=== PATIENT | female | born 1950 | race Caucasian/White ===

== ENCOUNTER 2018-08-22 23:56 | Inpatient (IN) | payer OTHER, MEDICAID ==
[~2018-08-22] VITALS: Ht 152.4 cm; Wt 67.1 kg
[2018-08-23] MEDS ORDERED: FUROSEMIDE 40MG/4ML VIAL IV ONE (01:45)
[2018-08-23 02:11] LABS: CHLORIDE 102 mEq/L (98-107)
[2018-08-23 02:14] LABS: BASOPHILS % 0.4 % (0.0-2.0); EOSINOPHILS % 1.6 % (0.0-5.0); HEMATOCRIT. 32.3 % (36.0-48.0); HEMOGLOBIN. 10.7 g/dL (12.0-16.0); LYMPHOCYTES % 9.8 % (20.0-50.0); MEAN CORPUSCULAR HEMOGLOBIN 27.4 pg (28.0-32.0); MEAN CORPUSCULAR VOLUME 82.6 fL (81.0-99.0); MEAN PLATELET VOLUME 8.5 fl (7.4-10.4); MONOCYTES % 5.6 % (2.0-8.0); NEUTROPHILS % 82.6 % (40.0-76.0); PLATELET 220 x1000/uL (130-400); RED BLOOD CELL COUNT 3.92 mill/uL (4.2-5.4); RED CELL DISTRIBUTION WIDTH 14.6 % (11.6-14.6)
[2018-08-23] MEDS ORDERED: ENALAPRIL 2.5MG/2ML VIAL 2ML IV ONE (04:00)
[2018-08-23] MEDS ORDERED: CLONIDINE 0.1MG TABLET PO PRN (08:30)
[2018-08-23] MEDS ORDERED: DEXTROSE 50% WATER 50ML SYRINGE IV PRN (08:30)
[2018-08-23] MEDS ORDERED: ONDANSETRON HCL 4MG/2ML INJ IV PRN (08:45)
[2018-08-23] MEDS ORDERED: ACETAMINOPHEN 325MG TABLET PO PRN (08:45)
[2018-08-23] MEDS: INSULIN LISPRO 100 UNITS/ML SUBCUT SCH ×3 (09:15→21:00)
[2018-08-23] MEDS ORDERED: AMLODIPINE 5MG TABLET PO SCH (09:15)
[2018-08-23] MEDS: FUROSEMIDE 40MG/4ML VIAL IVP SCH (10:02)
[2018-08-23] MEDS: BLOOD SUGAR DIAGNOSTIC STRIP TEST SCH ×4 (10:15→21:00)
[2018-08-23 11:59] LABS: LDL CHOLESTEROL 156 mg/dL (5-100)
[2018-08-23 12:01] LABS: CREATINE KINASE 35 IU/L (26-192); HDL CHOLESTEROL 47 mg/dL (40-59)
[2018-08-23 12:03] LABS: CREATINE KINASE MB FRACTION < 1.0 ng/mL (0.5-3.6)
[2018-08-23] MEDS: CLOPIDOGREL 75MG TABLET PO SCH (12:45)
[2018-08-23] MEDS: NITROGLYCERIN OINT 1GM/INCH UDPKT TD SCH ×2 (14:00→23:54)
[2018-08-23] MEDS ORDERED: METOPROLOL TARTRATE 25MG TABLET PO SCH (17:00)
[2018-08-23 23:10] VITALS: BP 114/67
[2018-08-23 23:30] VITALS: BP 114/67
[2018-08-23] MEDS: ATORVASTATIN CALCIUM 40MG TABLET PO SCH (23:55)
[2018-08-23] MEDS: LISINOPRIL 5MG TABLET PO SCH (23:55)
[2018-08-24 04:00] VITALS: BP 119/57
[2018-08-24] MEDS: NITROGLYCERIN OINT 1GM/INCH UDPKT TD SCH ×3 (06:04→20:17)
[2018-08-24] MEDS: INSULIN LISPRO 100 UNITS/ML SUBCUT SCH ×4 (06:19→21:27)
[2018-08-24] MEDS: BLOOD SUGAR DIAGNOSTIC STRIP TEST SCH ×4 (06:23→20:17)
[2018-08-24 08:00] VITALS: BP 121/57
[2018-08-24] MEDS: FUROSEMIDE 40MG/4ML VIAL IVP SCH (08:39)
[2018-08-24] MEDS: LISINOPRIL 5MG TABLET PO SCH ×2 (08:39→21:16)
[2018-08-24] MEDS: CLOPIDOGREL 75MG TABLET PO SCH (08:39)
[2018-08-24 12:00] VITALS: BP 147/64
[2018-08-24 16:00] VITALS: BP 151/68
[2018-08-24 20:00] VITALS: BP 157/67
[2018-08-24] MEDS: METOPROLOL TARTRATE 50MG TABLET PO SCH (21:16)
[2018-08-24] MEDS: ATORVASTATIN CALCIUM 40MG TABLET PO SCH (21:20)
[2018-08-24] MEDS: INSULIN GLARGINE UD 100 UNITS/ML SYR SUBCUT SCH (21:27)
[2018-08-24] MEDS ORDERED: METOPROLOL TARTRATE 25MG TABLET PO SCH (23:04)
[2018-08-25] VITALS: BP 122/68
[2018-08-25 04:00] VITALS: BP 142/72
[2018-08-25] MEDS: NITROGLYCERIN OINT 1GM/INCH UDPKT TD SCH ×2 (05:18→13:19)
[2018-08-25] MEDS: BLOOD SUGAR DIAGNOSTIC STRIP TEST SCH ×2 (06:30→11:34)
[2018-08-25] MEDS: INSULIN LISPRO 100 UNITS/ML SUBCUT SCH ×2 (06:30→12:16)
[2018-08-25 07:04] LABS: BASOPHILS % 0.8 % (0.0-2.0); EOSINOPHILS % 2.3 % (0.0-5.0); HEMATOCRIT. 29.9 % (36.0-48.0); HEMOGLOBIN. 10.1 g/dL (12.0-16.0); LYMPHOCYTES % 25.7 % (20.0-50.0); MEAN CORPUSCULAR HEMOGLOBIN 27.6 pg (28.0-32.0); MEAN CORPUSCULAR VOLUME 81.6 fL (81.0-99.0); MEAN PLATELET VOLUME 8.3 fl (7.4-10.4); MONOCYTES % 10.4 % (2.0-8.0); NEUTROPHILS % 60.8 % (40.0-76.0); PLATELET 234 x1000/uL (130-400); RED BLOOD CELL COUNT 3.66 mill/uL (4.2-5.4); RED CELL DISTRIBUTION WIDTH 14.4 % (11.6-14.6)
[2018-08-25 07:30] VITALS: BP 156/60
[2018-08-25 08:17] LABS: FOLIC ACID (FOLATE) SERUM 16.5 ng/mL (>5.38)
[2018-08-25] MEDS ORDERED: FAMOTIDINE 20MG TABLET PO SCH (09:00)
[2018-08-25] MEDS: FUROSEMIDE 40MG/4ML VIAL IVP SCH (09:08)
[2018-08-25] MEDS: CLOPIDOGREL 75MG TABLET PO SCH (09:08)
[2018-08-25] MEDS: METOPROLOL TARTRATE 50MG TABLET PO SCH (09:08)
[2018-08-25] MEDS: LISINOPRIL 5MG TABLET PO SCH (09:09)
[2018-08-25] MEDS: INSULIN GLARGINE UD 100 UNITS/ML SYR SUBCUT SCH (10:02)
[2018-08-25 12:00] VITALS: BP 155/67
[2018-08-25] MEDS ORDERED: LIP40 PO (12:36)
[2018-08-25] MEDS ORDERED: LISI-186 PO (12:36)
[2018-08-25] MEDS ORDERED: FURO-152 MT (12:36)
[2018-08-25] MEDS ORDERED: FAMO20TA8 PO (12:36)
[2018-08-25] MEDS ORDERED: METF-414 MT (12:36)
[2018-08-25] MEDS ORDERED: METO-539 PO (12:36)
[2018-08-25] MEDS ORDERED: GLIP5TAB12 MT (12:40)
[2018-08-25 13:19] VITALS: BP 155/67
[2018-08-25] MEDS ORDERED: METOPROLOL TARTRATE 50MG TABLET PO SCH (21:00)
== END 2018-08-25 15:16 | disposition home or self-care (01) | DRG 206 ==
LOC: ER 23:56 → 8WST 08-23 04:51 → EDBEDREQ 08-23 04:54 → EDBEDREQTM 08-23 04:54 → ENRESERV 08-23 21:23 → 8WST 08-24 02:00
PROVIDERS: ADMIT Internal Medicine; ATTEND Internal Medicine
DX: M94.0 Chondrocostal junction syndrome [Tietze] (principal); E44.1 Mild protein-calorie malnutrition; I50.22 Chronic systolic (congestive) heart failure; R07.89 Other chest pain; I11.0 Hypertensive heart disease with heart failure; I25.10 Atherosclerotic heart disease of native coronary artery without angina pectoris; E78.5 Hyperlipidemia, unspecified; E66.9 Obesity, unspecified; D64.9 Anemia, unspecified; E11.9 Type 2 diabetes mellitus without complications; Z68.28 Body mass index [BMI] 28.0-28.9, adult; Z71.3 Dietary counseling and surveillance; I25.2 Old myocardial infarction; Z79.84 Long term (current) use of oral hypoglycemic drugs; Z95.5 Presence of coronary angioplasty implant and graft
CPT/HCPCS: 36415; 71045; 80048; 80061; 82550; 82553; 82607; 82728; 82746; 82962; 83036; 83540; 83550; 83880; 84443; 84484; 93005; 93306; 93970; 96374; 96375; 96376; 99284; 99291; J1815; J1940; J3490